=== PATIENT | female | born 1990 | race Caucasian/White ===

== ENCOUNTER 2024-06-09 00:38 | Emergency (ER) | payer OTHER ==
[~2024-06-09] VITALS: Ht 167.6 cm; Wt 59.0 kg
[2024-06-09] MEDS ORDERED: Ondansetron HCl 2 MG / ML 2ML Vial IV ONE (02:10)
[2024-06-09] MEDS ORDERED: NS 1,000 ML IV SCH (02:10)
[2024-06-09] MEDS ORDERED: Ondansetron 4 MG SoluTab SL ONE (02:30)
[2024-06-09] MEDS ORDERED: NARCAN4 M1 (04:18)
== END 2024-06-09 04:50 | disposition home or self-care (01) ==
LOC: ER 00:38
DX: T40.411A Poisoning by fentanyl or fentanyl analogs, accidental (unintentional), initial encounter (principal)
CPT/HCPCS: 71045; 93005; 93010; A9270; J2405; J7030